=== PATIENT | male | born 1945 | race Caucasian/White ===

== ENCOUNTER → 2016-08-15 | Outpatient (CLI) | payer OTHER ==
[~2016-08-15] MED LIST: ASPEC81 PO; ASPI81TA21 PO; ATV5 PO; CNT PO; CRS10 PO; GADAVIST IV PRN; METO25TA3 PO; OMEG10007 PO; [UNRECOGNIZED DRUG - CODE] TOP
--- NOTE | 2016-08-15 21:17 | DIAGNOSTIC IMAGING REPORT ---
MRI right thigh RIGHT LOWER EXT NON JOINT COMBO CLINICAL HISTORY: R HAMSTRING INJURY Right trauma. Pain. Mass. TECHNIQUE: MRI multi axial acquisition pre and postcontrast administration COMPARISON STUDY: None FINDINGS: Large masslike heterogeneous process involving the bulk of the posterior hamstring musculature of the right thigh. It Is seen immediately posterior to the femur with no involvement of that structure. It contains multi cystic as well as partially hemorrhagic components. Several internal nodules are present with fluid fluid levels. It appears to be multicystic in multiple images/. Approximate dimensions are 20 cm in maximum cephalocaudal dimension with maximum transaxial dimensions of 7.3 x 7.2 cm. There is a moderate degree of surrounding edematous change. Hamstring insertions appear to be intact. There is moderate surrounding soft tissue edematous change based on the transaxial images. There is a contusion of the abductor musculature of the proximal thigh. Mild generalized soft tissue edematous changes seen in the subcutaneous fat of the posterior thigh. Bone marrow signal characteristics of the femur appear to be unremarkable. Mass appears to be generally well encapsulated and confined almost exclusively to the hamstring musculature. Diagnostic considerations must include a complex neoplasm, partially hemorrhagic mass, versus an atypical intramuscular hematoma. IMPRESSION: 1. Large heterogeneous and partially cystic lesion involving the bulk of the right thigh posterior hamstring musculature. 2. This mass contains solid, cystic, as well as potentially partially necrotic/hemorrhagic component. 3. General dimensions are 20 cm x 7.3 x 7.2 cm. 4. Although it is possible that this represents a complex posttraumatic hemorrhage, the diagnosis of exclusion must be a soft tissue lesion such as a soft tissue sarcoma, versus a hemorrhagic masslike/neoplastic process. 5. Oncologic surgical consultation is suggested Electronically signed by: John Collier M.D. 08/15/2016 9:15 PM Dictated Date/Time: 08/15/2016 9:09 PM
== END | disposition home or self-care (01) ==
LOC: C.MRI 18:35
PROVIDERS: ATTEND Physician Assistant
DX: S76.301A Unspecified injury of muscle, fascia and tendon of the posterior muscle group at thigh level, right thigh, initial encounter (principal); X58.XXXA Exposure to other specified factors, initial encounter